=== PATIENT | female | born 1945 ===

== ENCOUNTER 2019-12-15 08:18 | Outpatient (CLI) | payer MEDICARE ==
--- NOTE | 2019-12-15 10:28 | ULT ---
GALLBLADDER ULTRASOUND: HISTORY: Epigastric pain. FINDINGS: Visualized liver is unremarkable. The gallbladder demonstrates no evidence of gallstones, wall thick ening, edema, or pericholecystic fluid. Common bile duct is 0.4 cm. Pancreas and the right kidney a re unremarkable. No right upper quadrant abnormal fluid collection. IMPRESSION: Normal right upper quadrant ultrasound. POS: [facility]
== END 2019-12-15 08:19 | disposition home or self-care (01) ==
LOC: BICULT 08:18
PROVIDERS: ATTEND Internal Medicine Gastroenterology
DX: R10.13 Epigastric pain (principal); R14.0 Abdominal distension (gaseous); R19.4 Change in bowel habit
CPT/HCPCS: 76705